=== PATIENT | female | born 1965 | race Two or more races ===

== ENCOUNTER 2024-09-19 09:01 | Outpatient (AMB) | payer MEDICAID, SELFPAY ==
[2024-09-19 09:17] VITALS: BP 106/69; PULSE 90; RESP 18; TEMP 36.2; O2SAT 98; BMI 32.2
--- NOTE | 2024-09-19 09:17 | ORTHONT_ITS ---
Vital signs 09/19/24 09:17 Height 1.5 m Height Method Stated Weight 72.348 kg Weight Measurement Method Standing Scale BMI 32.2 BP 106/69 Blood Pressure Source Automatic Cuff Blood Pressure Location Left Upper Arm Position Sitting Respiration 18 Pulse 90 Pulse Source Monitor Temp 97.2 F Temp Source Temporal Artery Scan Pulse Oximetry (%) 98 Oxygen Delivery Method Room Air Med/Allergies Allergies & Medications Allergies metoclopramide Allergy (Unknown, Verified 09/19/24 09:18) HIVES prochlorperazine Allergy (Unknown, Verified 09/19/24 09:18) HIVES Contrast Media Allergy (Unknown, Uncoded 09/19/24 09:18) HIVES Medication Reconciliation Efavirenz/Emtricitab/Tenofovir * (ATRIPLA *) 1 tab PO DAILY ##0 12/27/07 [History Confirmed 09/19/24] Hydrocodone Bit/Acetaminophen (Vicodin) 1 tab PO Q4-6HRPRN ##15 12/27/07 [History Confirmed 09/19/24] Morphine Sulfate 60 mg PO DAILY ##0 12/27/07 [History Confirmed 09/19/24] Ondansetron Hcl * (ZOFRAN *) 8 mg PO BID ##0 12/27/07 [History Confirmed 09/19/24] Promethazine Hcl (Promethazine) 25 mg PO BID ##0 12/27/07 [History Confirmed 09/19/24] alprazolam 1 mg tablet (Xanax) 1 mg PO TID ##0 12/27/07 [History Confirmed 09/19/24] ferrous sulfate 325 mg (65 mg iron) tablet 325 ( PO BID ##0 12/27/07 [History Confirmed 09/19/24] hydroxyzine pamoate 25 mg capsule (Vistaril) 25 mg PO BID ##0 12/27/07 [History Confirmed 09/19/24] loratadine 10 mg tablet 10 mg PO DAILY ##0 12/27/07 [History Confirmed 09/19/24] mirtazapine 30 mg tablet (Remeron) 30 mg PO DAILY ##0 12/27/07 [History Confirmed 09/19/24] pantoprazole 40 mg tablet,delayed release (Protonix) 40 mg PO DAILY 28 days ##0 12/27/07 [History Confirmed 09/19/24] ondansetron 8 mg disintegrating tablet 8 mg PO Q12H 09/19/24 [History Confirmed 09/19/24] trazodone 150 mg tablet 150 mg PO QDAY 09/19/24 [History Confirmed 09/19/24] Exam Exam Patient is in no acute distress and is cooperative with the examination today. Breathing is nonlabored. Patient has a normal mood and affect. Bilateral extremities were evaluated and demonstrates sensation intact to light touch. Palpable pedal pulses are present. No significant edema is present. Bilateral hips were examined. The patient has no pain with log roll of the hips. Internal rotation to 30 degrees and external rotation to 30 degrees is painless. Negative FADIR. Right knee was examined today. The right knee is in reasonable alignment. Range of motion from 0-120 degrees. Knee is stable to varus and valgus as well as AP translation with <5mm. Patient has a negative McMurrays. There is no pain with patellofemoral compression and no crepitus noted. The knee is nontender to palpation. Left knee was examined today. The left knee is in varus alignment. Range of motion from 0-115 degrees. Knee is stable to varus and valgus as well as AP translation with <5mm. Patient has a negative McMurrays. There is no pain with patellofemoral compression and no crepitus noted. The knee is tender to palpation medially. Assessment and Plan Problem List (1) Pain in left knee: Status: Acute Plan: Patient is a pleasant 59-year-old female with left knee pain. She has an MRI which is rather unremarkable. I would like to see standing x-rays as I do suspect she has arthritis. 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) Reason for Visit:: LEFT KNEE PAIN Seen by Clinical Staff ONLY (RN/MA): No Cosmetology Instructor Required: Yes PCP or OBGYN visit in last 3 months: Yes Hx Now: No Do You Feel Safe at Home: Yes Authorities Contacted: N/A Questionairres Past Medical History Past Medical History Have you ever been diagnosed with any of the following: Respiratory Problems Smoking: No Smoking Exposure: No Subjective Visit Visit for: new patient and knee Immunization / Flu Flu Vaccine in the Last 12 Months: Yes Flu Vaccine Exclusion Criteria: Already Received History of Present Illness Chief complaint: Left knee pain Traci is a pleasant 59-year-old female with left knee pain and left knee arthritis. She reports the knee feels unstable. She has tried anti- inflammatories in the past but it has affected her kidneys and she has a new kidney doctor. She reports she cannot take about this time. We will get new knee x-rays of the left knee. She has not had any injections Pain Pain level (0-10): 8 Pain duration: ON AND OFF Pain location: inside (medial) and anterior Pain quality: sharp, dull and aching Pain timing: night, increases with activity and stairs Associated signs & symptoms: weakness, stiffness and other (specify) Ambulatory data Ambulatory device: none Treatments Improvement with previous injections: No Number of Physical Therapy sessions: 6 Improvement with PT: No Improvement with NSAIDS: no Review of Systems Review of Systems: All systems negative unless otherwise noted in HPI.
--- NOTE | 2024-09-19 09:26 | XR_ITS ---
Examination: Bilateral knees single view Left knee PA, lateral, axial 3 views TECHNIQUE: Bilateral AP knees standing single view Left knee PA weightbearing, weightbearing lateral left knee, axial left knee 3 views total 4 views Exam date and time: September 19, 2024 0951 hours INDICATIONS: Left knee pain 3 months. FINDINGS: Moderate osteopenia Moderate narrowing medial joint spaces bilaterally No fracture or dislocation IMPRESSION: Moderate narrowing medial joint spaces bilaterally
== END 2024-09-19 09:29 | disposition home or self-care (01) ==
LOC: HODSRG 09:01
PROVIDERS: PCP Internal Medicine; Referring Provider Internal Medicine; Supervising Provider Orthopaedic Surgery Adult Reconstructive Orthopaedic Surgery; Visit Provider Orthopaedic Surgery Adult Reconstructive Orthopaedic Surgery
DX: M25.562 Pain in left knee (principal); M25.862 Other specified joint disorders, left knee; M25.861 Other specified joint disorders, right knee
CPT/HCPCS: 73564; 99204; G0463